=== PATIENT | female | born 1950 | race Hispanic/Latino ===

== ENCOUNTER 2017-02-18 11:30 | Outpatient (CLI) | payer MEDICARE, OTHER ==
--- NOTE | 2017-02-19 09:18 | Mammography Report ---
BILATERAL DIGITAL SCREENING MAMMOGRAM with CAD: 02/18/17 11:30:00 CLINICAL: Routine screening.History of left breast surgery and 1984. COMPARISON:03/11/15 FINDINGS: The breasts are almost entirely fatty.Left breast is smaller than the right but this pattern is unchanged compared to prior exams. It is unclear from her records as to whether this is result of partial mastectomy for cancer. No mass, architectural distortion or suspicious calcifications. IMPRESSION: No mammographic evidence of malignancy. BI-RADS CATEGORY: 2 -- Benign RECOMMENDATION: Routine mammographic screening in one year. COMMENT: Patient follow-up letters are generated by our [employer] application.
== END 2017-02-18 11:31 | disposition home or self-care (01) ==
LOC: SPVWC 11:30
PROVIDERS: ATTEND Internal Medicine
DX: Z12.31 Encounter for screening mammogram for malignant neoplasm of breast (principal); Z98.890 Other specified postprocedural states
CPT/HCPCS: 77067; G0202